=== PATIENT | female | born 1935 | race Caucasian/White ===

== ENCOUNTER 2019-07-12 08:20 | Outpatient (RCR) | payer MEDICARE, MEDICAID, SELFPAY | END 2019-08-09 00:01 | LOC: LAB 08:20 | PROVIDERS: Family Provider Family Medicine; Visit Provider Family Medicine | DX: Z09 Encounter for follow-up examination after completed treatment for conditions other than malignant neoplasm (principal); N39.0 Urinary tract infection, site not specified | CPT/HCPCS: 85025 ==

== ENCOUNTER 2019-08-29 09:14 | Outpatient (RCR) | payer MEDICARE, MEDICAID, SELFPAY ==
[2019-08-29 09:56] LABS: Basophils % 0.6 %; Eosinophils # 0.2 10^3/uL (0.0-0.8); Eosinophils % 3.2 %; Hematocrit 33.9 % (37.0-47.0); Hemoglobin 9.6 g/dL (11.5-15.3); Lymphocytes % 41.4 %; Mean Corpuscular HGB Conc 28.3 g/dL (30.0-36.0); Mean Corpuscular Hemoglobin 20.7 pg (28.0-34.0); Mean Corpuscular Volume 73.1 fL (81-99); Mean Platelet Volume 9.9 fL (7.4-10.4); Monocytes # 0.8 10^3/uL (0.2-0.9); Monocytes % 11.1 %; Neutrophils # 3.1 10^3/uL (1.8-7.7); Neutrophils % 43.4 %; Nucleated Red Blood Cells % 0 %; Platelet Count 354 10^3/cmm (130-400); Red Blood Count 4.64 10^6/uL (4.1-5.3); Red Cell Distribution Width 17.2 % (12.1-15.1); White Blood Count 7.1 10^3/uL (4.0-10.0)
[2019-08-29 10:22] LABS: Anion Gap 12.2 (5-19); Blood Urea Nitrogen 14 mg/dL (8-23); Calcium 9.4 mg/Dl (8.8-10.2); Carbon Dioxide 28 mmol/L (22-29); Chloride 102 mmol/L (98-107); Glucose 91 mg/dL (74-106); Potassium 4.2 mmol/L (3.5-5.1); Sodium 138 mmol/L (136-145)
== END 2019-09-09 23:59 | disposition home or self-care (01) ==
LOC: LAB 09:14
PROVIDERS: Family Provider Family Medicine; PCP Family Medicine; Visit Provider Family Medicine
DX: D64.9 Anemia, unspecified (principal); E87.6 Hypokalemia; I10 Essential (primary) hypertension
CPT/HCPCS: 80048; 85025

== ENCOUNTER 2020-12-08 13:03 | Outpatient (CLI) | payer MEDICARE, MEDICAID, SELFPAY ==
[2020-12-08 13:14] LABS: Hematocrit 44.9 % (37.0-47.0); Hemoglobin 13.9 g/dL (11.5-15.3)
== END 2020-12-08 13:04 | disposition home or self-care (01) ==
LOC: LAB 13:05
PROVIDERS: PCP Family Medicine; Visit Provider Family Medicine
DX: K92.1 Melena (principal)
CPT/HCPCS: 85014; 85018

== ENCOUNTER → 2021-10-16 13:48 | Outpatient (BNVA) | payer MEDICARE, MEDICAID, SELFPAY | PROVIDERS: PCP Family Medicine; Visit Provider Internal Medicine Cardiovascular Disease | DX: I11.0 Hypertensive heart disease with heart failure (principal); I50.32 Chronic diastolic (congestive) heart failure; I48.0 Paroxysmal atrial fibrillation; I25.10 Atherosclerotic heart disease of native coronary artery without angina pectoris | CPT/HCPCS: 99214 ==

== ENCOUNTER 2022-04-04 12:32 | Outpatient (CLI) | payer MEDICARE, MEDICAID, SELFPAY ==
--- NOTE | 2022-04-04 13:00 | USCV_ITS ---
Lilia Hernandez Age: 86 Gender: F : 1935 Exam Date: 04/04/2022 13:00 Ordering Phys: Marge Archer MD ([email or web address]) Technologist: KUN Exam Location: [facility] [place] Indication: CHEST PAIN BP: 136 / 84 HR: 83 Rhythm: Other Technical Quality: Suboptimal MEASUREMENTS (Male / Female) Normal Values 2D ECHO LV Diastolic Diameter PLAX 3.7 cm 4.2 - 5.9 / 3.9 - 5.3 cm LV Systolic Diameter PLAX 2.1 cm IVS Diastolic Thickness 1.0 cm 0.6 - 1.0 / 0.6 - 0.9 cm IVS Systolic Thickness 1.4 cm LVPW Diastolic Thickness 1.4 cm 0.6 - 1.0 / 0.6 - 0.9 cm LVPW Systolic Thickness 1.6 cm LVOT Diameter 2.0 cm LV Ejection Fraction 2D Teich 74.0 % LV Ejection Fraction MOD 2C 39.2 % LV Ejection Fraction 2C AL 38.3 % LA Diameter 4.0 cm LA Width 2.5 cm LA Height 4.1 cm RA Width 3.7 cm RA Height 4.9 cm Aorta at Sinotubular Diameter 2.1 cm M-MODE Aortic Annulus Diameter 2.8 cm LA Ao Ratio MM 1.3 MV E Point Septal Separation 0.6 cm DOPPLER AV Peak Velocity 123.0 cm/s LVOT Peak Velocity 55.5 cm/s AV Area Cont Eq vti 1.8 cm squared AV Area Cont Eq pk 1.4 cm squared MV Area PHT 3.7 cm squared MV E' Velocity 57.0 cm/s Mitral E to MV E' Ratio 10.9 Mitral E to LV E' Lateral Ratio 10.3 Mitral E to LV E' Septal Ratio 11.6 TR Peak Velocity 302.0 cm/s TR Peak Gradient 36.5 mmHg TR Mean Velocity 219.3 cm/s TR Mean Gradient 21.5 mmHg TR Velocity Time Integral 88.4 cm Right Atrial Pressure 8.0 mmHg Pulmonary Artery Systolic Pressu 44.5 mmHg RV Acceleration Time 0.1 s RV Ejection Time 0.2 s RV AcT/ET 0.3 FINDINGS Left Ventricle Normal left ventricular size, systolic function and mildly increased wall thickness. Mild concentric left ventricular hypertrophy. Left ventricular ejection fraction is grossly estimated at 55 %. This study is inadequate for estimation of regional wall motion abnormality. Rhythm precludes evaluation of diastolic function. Right Ventricle Normal right ventricular size and systolic function. Right ventricular systolic pressure 53 mmHg. Right Atrium Moderately increased right atrial size. Left Atrium Mildly increased left atrial size. Mitral Valve Mildly thickened mitral valve. Trace mitral valve regurgitation. Aortic Valve Moderately thickened and calcified trileaflet aortic valve. No aortic valve stenosis. No aortic valve regurgitation. Tricuspid Valve Structurally normal tricuspid valve. No tricuspid valve stenosis. Moderate tricuspid valve regurgitation. Pulmonic Valve Structurally normal pulmonic valve. No pulmonary valve stenosis. Trace pulmonary valve regurgitation. Pericardium No pericardial effusion. Aorta Normal size aortic root and proximal ascending aorta. IVC Inferior vena cava not visualized. CONCLUSIONS 1. This is a technically difficult study. 2. Normal left ventricular size and systolic function. Mild concentric left ventricular hypertrophy. Left ventricular ejection fraction is grossly estimated at 55 %. This study is inadequate for estimation of regional wall motion abnormality. 3. Normal right ventricular size and systolic function. 4. Moderate pulmonary hypertension with pulmonary artery pressure estimated at 53 mmHg. 5. Moderate tricuspid valve regurgitation. 6. No prior similar studies to compare. Marge Archer MD (Electronically Signed) Final Date: 10 April 2022 17:22 S
== END 2022-04-04 12:33 | disposition home or self-care (01) ==
LOC: RAD 12:33
PROVIDERS: PCP Family Medicine; Visit Provider Internal Medicine Cardiovascular Disease
DX: R06.02 Shortness of breath (principal); R07.9 Chest pain, unspecified; I27.20 Pulmonary hypertension, unspecified; I07.1 Rheumatic tricuspid insufficiency
CPT/HCPCS: 93306

== ENCOUNTER → 2022-04-23 13:45 | Outpatient (BNVA) | payer MEDICARE, MEDICAID, SELFPAY | PROVIDERS: PCP Internal Medicine; Visit Provider Internal Medicine Cardiovascular Disease | DX: I25.10 Atherosclerotic heart disease of native coronary artery without angina pectoris (principal); I48.0 Paroxysmal atrial fibrillation; Z79.01 Long term (current) use of anticoagulants; Z95.1 Presence of aortocoronary bypass graft; I11.0 Hypertensive heart disease with heart failure; I50.32 Chronic diastolic (congestive) heart failure; Z87.891 Personal history of nicotine dependence | CPT/HCPCS: 99214 ==

== ENCOUNTER → 2023-03-11 13:40 | Outpatient (BNVA) | payer MEDICARE, MEDICAID, SELFPAY | PROVIDERS: PCP Internal Medicine; Visit Provider Internal Medicine Cardiovascular Disease | DX: I25.10 Atherosclerotic heart disease of native coronary artery without angina pectoris (principal); Z95.1 Presence of aortocoronary bypass graft; I48.0 Paroxysmal atrial fibrillation; I11.0 Hypertensive heart disease with heart failure; I50.32 Chronic diastolic (congestive) heart failure; Z87.891 Personal history of nicotine dependence; Z79.01 Long term (current) use of anticoagulants | CPT/HCPCS: 99214 ==

== ENCOUNTER → 2023-03-31 08:57 | Outpatient (BNVA) | payer MEDICARE, MEDICAID, SELFPAY | PROVIDERS: PCP Internal Medicine; Visit Provider Podiatrist Foot & Ankle Surgery | DX: Z79.4 Long term (current) use of insulin; L60.3 Nail dystrophy; I73.9 Peripheral vascular disease, unspecified; M21.41 Flat foot [pes planus] (acquired), right foot; M21.42 Flat foot [pes planus] (acquired), left foot | CPT/HCPCS: 11721; 99204 ==

== ENCOUNTER → 2023-06-30 09:20 | Outpatient (BNVA) | payer MEDICARE, MEDICAID, SELFPAY | PROVIDERS: PCP Internal Medicine; Visit Provider Podiatrist Foot & Ankle Surgery | DX: E11.9 Type 2 diabetes mellitus without complications (principal); L60.3 Nail dystrophy; I73.9 Peripheral vascular disease, unspecified; M21.41 Flat foot [pes planus] (acquired), right foot; M21.42 Flat foot [pes planus] (acquired), left foot; Z79.4 Long term (current) use of insulin; Z79.84 Long term (current) use of oral hypoglycemic drugs | CPT/HCPCS: 11721 ==

== ENCOUNTER 2023-07-10 03:09 | Emergency (ER) | payer MEDICARE, MEDICAID, SELFPAY ==
[2023-07-10 03:10] VITALS: BP 195/111; PULSE 77; RESP 18; TEMP 36.9; O2SAT 92; BMI 32.9
--- NOTE | 2023-07-10 03:10 | XRR_ITS ---
PROCEDURE INFORMATION: Exam: XR Chest Exam date and time: 07/10/2023 3:29 AM Age: 88 years old Clinical indication: Chest wall pain; Prior surgery; Surgery date: 6+ months; Surgery type: Open heart 10 years ago, ex smoker; Additional info: Cp TECHNIQUE: Imaging protocol: Radiologic exam of the chest. Views: 1 view. COMPARISON: CR XR chest 1V [id number] 03/26/2019 6:39 PM FINDINGS: Lungs: Unremarkable. No consolidation. Pleural spaces: Unremarkable. No pleural effusion. No pneumothorax. Heart/Mediastinum: Cardiomegaly. Bones/joints: Postop sternotomy wires. XR/XR chest 1V portable [id number] IMPRESSION: Cardiomegaly with no acute process
--- NOTE | 2023-07-10 03:11 | ECG_ITS ---
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 Measurements Intervals [place] Rate: 91 P: 0 VT: 0 QRS: -47 QRSD: 96 T: 113 QT: 375 QTc: 463 Interpretive Statements ATRIAL FIBRILLATION LEFT AXIS DEVIATION [QRS AXIS < -30] INCOMPLETE RIGHT BUNDLE BRANCH BLOCK [90+ ms QRS DURATION, TERMINAL R IN V1/V2, 40+ ms S IN I/aVL/V4/V5/V6] SEPTAL MYOCARDIAL INFARCTION , OF INDETERMINATE AGE [40+ ms Q WAVE IN V1/V2] Compared to ECG 06/21/2019 08:21:20 Left-axis deviation now present Incomplete right bundle-branch block now present Myocardial infarct finding now present Sinus rhythm no longer present T-wave abnormality no longer present Possible ischemia no longer present Electronically Signed On 07-10-2023 6:50:44 [employer] COUN[employer] by Marge Archer M.D. [id number]
--- NOTE | 2023-07-10 03:15 | ED_ITS ---
HPI - Chest Pain 2 General: Chief Complaint: Chest Pain Stated Complaint: Chest Pain Time Seen by Provider: 07/10/23 03:10 Source: patient and EMS Mode of arrival: EMS Limitations: no limitations History of Present Illness: 88-year-old female is here from jail she said she is having some chest pain tonight side of her chest sharp pain she states it lasted roughly 1 hour and is now resolved she denies any vomiting denies any cough or fever denies any shortness of breath at this time. Associated symptoms: Deny abdominal pain, dyspnea, fever(s), nausea or vomiting Review of Systems 2 Const: Denies: fever(s), chills, body aches or change in appetite ENMT: Denies: throat pain or dental pain Card: Reports: chest pain Resp: Denies: dyspnea GI: Denies: abdominal pain, nausea, vomiting or diarrhea Musc: Denies: neck pain or back pain Skin/Breast: Denies: rash Neuro: Denies: headache(s) PFSH ED 2 PFSH: Medical History Atrial fibrillation Diastolic heart failure HTN (hypertension) Surgical History S/P CABG (coronary artery bypass graft) Family History Other CAD (coronary artery disease) Social History Smoking and tobacco/nicotine status: former use of tobacco/nicotine Physical Exam 2 Const: COMMON NORMALS: no acute distress, patient oriented x3 and healthy appearing HENMT: COMMON NORMALS: normocephalic and atraumatic HEAD & SCALP: n ormocephalic and atraumatic Neck/C-Spine: COMMON NORMALS: full ROM and supple Chest: COMMONS NORMALS: normal inspection of the chest; negative for normal palpation of entire chest wall (point tender in center of chest) Resp: COMMON NORMALS: normal respiratory effort, No retractions, No use of accessory muscles and clear to auscultation bilaterally AUSCULTATION: clear to auscultation bilaterally Cardio: COMMON NORMALS: regular rate and No murmurs present (Cardio) RATE: regular rate RHYTHM: abnormal rhythm irregularly irregular GI: COMMON NORMALS: Normal to inspection, nondistended, normoactive bowel sounds present, Soft to palpation, non-tender and no masses PALPATION: Yes Soft to palpation Extremity: COMMON NORMALS: normal to inspection and full ROM Neuro: COMMON NORMALS: patient oriented x3, moves all extremities and no focal motor deficits Psych: COMMON NORMALS: mental status grossly normal, Normal thought process present and cooperative THOUGHT PROCESS: Normal thought process present Skin: COMMON NORMALS: no rashes or lesions noted and no wounds GENERAL SKIN EXAM: no rashes or lesions noted Course 2 Vital Signs: Vital signs: Vital Signs Temperature 98.5 F 07/10/23 03:10 Pulse Rate 88 07/10/23 05:05 Respiratory Rate 18 07/10/23 05:05 Blood Pressure 122/89 07/10/23 05:05 Pulse Oximetry 94 07/10/23 05:05 Oxygen Delivery Me thod Nasal Cannula 07/10/23 05:05 Oxygen Flow Rate 2 07/10/23 05:05 MDM - Chest Pain Medical Decision Making Patient presents here with chest pain its atypical in nature initial and repeat troponin are negative EKGs x-rays normal pain is resolved here she is stable for discharge she is follow-up with PCP and return if worsening. Medical Records I reviewed the patient's medical records. Lab Data I reviewed the patient's lab results. 07/10/23 03:20 07/10/23 03:20 Radiology Impressions Chest X-Ray 07/10/23 03:10 IMPRESSION: Cardiomegaly with no acute process Laboratory Results WBC 11.19 10^3/uL (3.29-11.43) 07/10/23 03:20 RBC 4.79 10^6/uL (3.85-5.65) 07/10/23 03:20 Hgb 13.30 g/dL (11.27-16.99) 07/10/23 03:20 Hct 43.1 % (36-47) 07/10/23 03:20 MCV 90.0 fl (85-98) 07/10/23 03:20 MCH 27.8 pg (27-33) 07/10/23 03:20 MCHC 30.9 g/dL (30-55) 07/10/23 03:20 RDW 13.4 % (12.1-15.1) 07/10/23 03:20 Plt Count 233 10^3/cmm (157-399) 07/10/23 03:20 MPV 9.4 fL (7.4-10.4) 07/10/23 03:20 Neut % (Auto) 46.2 % 07/10/23 03:20 Lymph % (Auto) 43.1 % 07/10/23 03:20 [place] % (Auto) 8.4 % 07/10/23 03:20 Eos % (Auto) 1.6 % 07/10/23 03:20 Baso % (Auto) 0.4 % 07/10/23 03:20 Neut # (Auto) 5.17 10^3/uL (1.8-7.7) 07/10/23 03:20 Lymph # (Auto) 4.8 10^3/uL (0.8-4.8) 07/10/23 03:20 [place] # (Auto) 0.9 10^3/uL (0.2-0.9) 07/10/23 03:20 Eos # (Auto) 0.2 10^3/uL (0.0-0.8) 07/10/23 03:20 Baso # (Auto) 0.1 10^3/uL (0.0-0.1) 07/10/23 03:20 Nucleated RBC % (auto) 0 % 07/10/23 03:20 Nucleated RBCs # 0.0 /100WBC 07/10/23 03:20 PT 16.50 SECONDS (12.1-14.9) H 07/10/23 03:20 INR 1.28 (0.8-1.2) H 07/10/23 03:20 Sodium 139 mmol/L (136-145) 07/10/23 03:20 Potassium 4.1 mmol/L (3.5-5.1) 07/10/23 03:20 Chloride 103 mmol/L (98-107) 07/10/23 03:20 Carbon Dioxide 29 mmol/L (22-29) 07/10/23 03:20 Anion Gap 11.1 (5-19) 07/10/23 03:20 BUN 15 mg/dL (8-23) 07/10/23 03:20 Creatinine 0.8 mg/dL (0.5-0.9) 07/10/23 03:20 GFR Calculation Not Reportable 07/10/23 03:20 Glucose 118 mg/dL (65-115) H 07/10/23 03:20 Calculated Osmolality 290 mOsm/kg (285-295) 07/10/23 03:20 Calcium 9.0 mg/dL (8.5-10.5) 07/10/23 03:20 Total Bilirubin 0.3 mg/dL (0.15-1.2) 07/10/23 03:20 AST 14 U/L (0-32) 07/10/23 03:20 ALT 7 U/L (0-33) 07/10/23 03:20 Alkaline Phosphatase 83 U/L (35-105) 07/10/23 03:20 Troponin T Baseline 15 ng/L (0-10) H 07/10/23 03:20 Troponin T 120 Minute 15.49 ng/L (0-10) H 07/10/23 05:01 Delta Troponin T 0.49 ABS# (0-10) 07/10/23 05:01 Total Protein 6.5 g/dL (6.6-8.7) L 07/10/23 03:20 Albumin 3.4 g/dL (3.5-5.2) L 07/10/23 03:20 Globulin 3.1 g/dL (1.3-4.6) 07/10/23 03:20 All radiology interpretation(s) finalized by discharge Discharge Plan Discharge Patient Disposition: Home Clinical Impression: Chest pain Condition: Stable Prescriptions: No Action acetaminophen 325 mg tablet 325 mg PO QID PRN bisacodyl 10 mg suppository 10 mg [place] DAILY PRN Senna Plus 8.6-50 mg capsule 1 tab-cap PO BID PRN magnesium hydroxide [Milk of Magnesia] 400 mg/5 mL suspension 400 mg PO DAILY PRN polyethylene glycol 3350 [Miralax] 17 gram/dose powder 17 g PO DAILY PRN atorvastatin 20 mg tablet 20 mg PO DAILY furosemide 20 mg tablet 20 mg PO DAILY ibuprofen 400 mg tablet 400 mg PO Q8H PRN loperamide 2 mg tablet 2 mg PO Q6H PRN metoprolol succinate 25 mg tablet extended release 24 hr 25 mg PO DAILY Qty: 90 2RF donepezil 10 mg tablet 10 mg PO DAILY memantine 10 mg tablet 10 mg PO BID nitroglycerin [Nitrostat] 0.4 mg tablet, sublingual 0.4 mg SUBLINGUAL Q5M PRN omeprazole 20 mg capsule,delayed release(DR/EC) 20 mg PO DAILY ondansetron HCl 4 mg tablet 4 mg PO Q8H PRN fluticasone propionate 50 mcg/actuation spray,suspension 1 spray INTRANASAL DAILY Eliquis 5 mg tablet 2.5 mg PO BID metformin 500 mg tablet extended release 24 hr 500 mg PO DAILY Tresiba FlexTouch U-100 100 unit/mL (3 mL) insulin pen 20 unit SUBCUT DAILY insulin aspart U-100 [Novolog FlexPen U-100 Insulin] 100 unit/mL (3 mL) insulin pen 6 unit SUBCUT TID nystatin 100,000 unit/gram powder 1 applic topical DAILY PRN Discharge Orders: Discharge ED (Routine); Ordered 07/10/23 Ordered By: Aisha Buenrostro Referrals: Arnold John DO [Primary Care Provider] - 1-3 days Discharge Diet: Advance as tolerated Discharge Activity: Resume usual activity Patient Instructions: Chest Pain (ED) Coding Level of Care Code ED Professor Of Sociology for Rudy Castro
[2023-07-10] MEDS: hyDRALAzine 20 mg/mL INJ 1 mL 10 MG IVP (03:30)
[2023-07-10 03:33] LABS: Basophils # 0.1 10^3/uL (0.0-0.1); Basophils % 0.4 %; Eosinophils # 0.2 10^3/uL (0.0-0.8); Eosinophils % 1.6 %; Hematocrit 43.1 % (36-47); Lymphocytes # 4.8 10^3/uL (0.8-4.8); Lymphocytes % 43.1 %; Mean Corpuscular HGB Conc 30.9 g/dL (30-55); Mean Corpuscular Hemoglobin 27.8 pg (27-33); Mean Platelet Volume 9.4 fL (7.4-10.4); Monocytes # 0.9 10^3/uL (0.2-0.9); Monocytes % 8.4 %; Neutrophils # 5.17 10^3/uL (1.8-7.7); Neutrophils % 46.2 %; Nucleated Red Blood Cells % 0 %; Platelet Count 233 10^3/cmm (157-399); Red Blood Count 4.79 10^6/uL (3.85-5.65); Red Cell Distribution Width 13.4 % (12.1-15.1); White Blood Count 11.19 10^3/uL (3.29-11.43)
[2023-07-10 03:45] LABS: INR 1.28 (0.8-1.2)
[2023-07-10 03:49] VITALS: BP 132/80; PULSE 80; RESP 17; O2SAT 94
[2023-07-10 03:54] LABS: Alanine Aminotransferase 7 U/L (0-33); Albumin Level 3.4 g/dL (3.5-5.2); Alkaline Phosphatase 83 U/L (35-105); Anion Gap 11.1 (5-19); Aspartate Amino Transferase 14 U/L (0-32); Blood Urea Nitrogen 15 mg/dL (8-23); Carbon Dioxide 29 mmol/L (22-29); Chloride 103 mmol/L (98-107); Globulin 3.1 g/dL (1.3-4.6); Glucose 118 mg/dL (65-115); Osmolality Calculated 290 mOsm/kg (285-295); Potassium 4.1 mmol/L (3.5-5.1); Sodium 139 mmol/L (136-145); Total Bilirubin 0.3 mg/dL (0.15-1.2); Total Protein 6.5 g/dL (6.6-8.7)
[2023-07-10 03:55] LABS: Troponin(5th) Baseline 15 ng/L (0-10)
[2023-07-10 04:27] VITALS: BP 115/66; PULSE 89; RESP 16; O2SAT 94
[2023-07-10 05:05] VITALS: BP 122/89; PULSE 88; RESP 18; O2SAT 94
[2023-07-10 05:24] LABS: Troponin 5 2HR 15.49 ng/L (0-10); Troponin 5 2HR Delta 0.49 ABS# (0-10)
[2023-07-10 09:41] VITALS: PULSE 90; RESP 17; O2SAT 98
== END 2023-07-10 10:45 | disposition home or self-care (01) ==
PROVIDERS: Emergency Provider Emergency Medicine; PCP Internal Medicine
DX: R07.9 Chest pain, unspecified (principal); Z79.01 Long term (current) use of anticoagulants; Z79.84 Long term (current) use of oral hypoglycemic drugs; Z79.4 Long term (current) use of insulin; I11.0 Hypertensive heart disease with heart failure; I50.30 Unspecified diastolic (congestive) heart failure; Z95.1 Presence of aortocoronary bypass graft; Z87.891 Personal history of nicotine dependence
CPT/HCPCS: 71045; 80053; 84484; 85025; 85610; 93005; 96374; 99285; J0360

== ENCOUNTER → 2023-08-21 11:15 | Outpatient (BNVA) | payer MEDICARE, MEDICAID, SELFPAY | PROVIDERS: PCP Internal Medicine; Visit Provider Nurse Practitioner Family | DX: I48.0 Paroxysmal atrial fibrillation (principal); I11.0 Hypertensive heart disease with heart failure; I50.32 Chronic diastolic (congestive) heart failure; Z95.1 Presence of aortocoronary bypass graft; Z87.891 Personal history of nicotine dependence; Z79.01 Long term (current) use of anticoagulants | CPT/HCPCS: 99214 ==

== ENCOUNTER 2024-01-05 13:08 | Emergency (ER) | payer MEDICARE, MEDICAID, SELFPAY ==
[2024-01-05 13:15] VITALS: BP 176/91; PULSE 95; RESP 16; TEMP 36.8; O2SAT 91
--- NOTE | 2024-01-05 13:34 | ECG_ITS ---
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 Measurements Intervals [place] Rate: 88 P: 0 OK: 0 QRS: -31 QRSD: 91 T: 127 QT: 389 QTc: 472 Interpretive Statements ATRIAL FIBRILLATION LEFT AXIS DEVIATION [QRS AXIS < -30] MODERATE VOLTAGE CRITERIA FOR LVH, CONSIDER NORMAL VARIANT [MEETS CRITERIA IN ONE OF: R(aVL), S(V1), R(V5), R(V5/V6)+S(V1)] POSSIBLE SEPTAL MYOCARDIAL INFARCTION , PROBABLY OLD [30 ms Q WAVE IN V1/V2] Compared to ECG 07/10/2023 03:11:58 Incomplete right bundle-branch block no longer present Myocardial infarct finding still present Electronically Signed On 01-05-2024 16:48:22 CDT by Morris Eason M.D. [id number]
--- NOTE | 2024-01-05 13:34 | CT_ITS ---
WS: [id number] CT HEAD TECHNIQUE: Noncontrast CT of the head obtained from the skullbase to the vertex. CLINICAL INFORMATION: AMS COMPARISON: None. DLP: 1025.[address] scans at [facility] use at least one of these dose optimization techniques: automated e xposure control; mA and/or kV adjustment per patient size (includes targeted exams where dose is matc hed to clinical indication); or iterative reconstruction. FINDINGS: No evidence of intracranial hemorrhage or mass effect. Ventricular system and basal cisterns are patrick nt. Moderate small vessel changes with advanced parenchymal volume loss. No extra-axial fluid collect ions. No evidence of mass or mass effect. RIGHT sphenoid sinusitis. Mastoid air cells are well-aerated. CT/CT head wo con* [id number] IMPRESSION: 1. No evidence of intracranial hemorrhage or mass effect. 2. Moderate small vessel changes. Advanced parenchymal volume loss. 3. Intracranial vascular calcification. 4. RIGHT sphenoid sinusitis. 5. No acute intracranial findings.
--- NOTE | 2024-01-05 13:38 | W.ED.WEAKNES ---
HPI - Weakness General: Chief complaint: Weakness Stated complaint: Confusion, Weakness Time Seen by Provider: 01/05/24 13:26 Source: patient Mode of arrival: ambulatory History of Present Illness: 88-year-old female presents emergency room via EMS with complaints of generalized weakness. No reported fever sweats or chills no recent fall or trauma. No shortness of breath she denies any abdominal pain. She is otherwise awake and alert answers questions appropriately. MD Complaint: generalized weakness Location: generalized Severity: mild Relieving factors: none Exacerbating factors: none Associated symptoms: Denies chest pain, chills, confusion, melena, decreased appetite, diaphoresis, dysuria, easy bruising, fever(s), headache(s), myalgias, nausea, rash, short of breath, syncope or vomiting Review of Systems Const: Denies: fever(s), chills or diaphoresis Card: Denies: chest pain or syncope Resp: Denies: dyspnea GI: Denies: abdominal pain, nausea, vomiting or melena : Denies: dysuria, urinary frequency or urinary urgency Musc: Denies: neck pain or back pain Skin/Breast: Denies: rash Neuro: Denies: headache(s) or confusion Amor/Lymph: Denies: easy bruising PFSH ED PFSH: Medical History Diastolic heart failure HTN (hypertension) Atrial fibrillation Surgical History S/P CABG (coronary artery bypass graft) Family History Other CAD (coronary artery disease) Social History Smoking and tobacco/nicotine status: former use of tobacco/nicotine Physical Exam Const: COMMON NORMALS: no acute distress GENERAL APPEARANCE: cooperative and comfortable ORIENTATION/CONSCIOUSNESS: Yes awake, Yes oriented to person, Yes oriented to place and Yes oriented to time HENMT: COMMON NORMALS: normocephalic, atraumatic and hearing grossly normal bilaterally HEAD & SCALP: normocephalic and atraumatic Resp: COMMON NORMALS: normal respiratory effort, No retractions, No use of accessory muscles and clear to auscultation bilaterally AUSCULTATION: clear to auscultation bilaterally Cardio: COMMON NORMALS: regular rate, regular rhythm and No murmurs present (Cardio) RATE: regular rate RHYTHM: regular rhythm GI: COMMON NORMALS: Soft to palpation and No hepatosplenomegaly present AUSCULTATION: Yes normoactive bowel sounds PALPATION: Yes Soft to palpation, No Tenderness to palpation present (GI), No Guarding due to palpation present (GI) and Yes No hepatosplenomegaly present Extremity: COMMON NORMALS: normal to inspection, capillary refill normal, no clubbing, cyanosis or edema, no calf tenderness and no pedal edema Neuro: SENSORIUM/ORIENTATION: Yes oriented to person, Yes oriented to place and Yes oriented to time Skin: COMMON NORMALS: no rashes or lesions noted GENERAL SKIN EXAM: no rashes or lesions noted Course Vital Signs: Vital signs: Vital Signs Temperature 98.2 F 01/05/24 13:15 Pulse Rate 92 01/05/24 21:44 Respiratory Rate 15 01/05/24 21:44 Blood Pressure 170/105 01/05/24 21:44 Pulse Oximetry 90 01/05/24 21:44 Oxygen Delivery Me thod Room Air, Nasal C annula 01/05/24 21:43 Oxygen Flow Rate 2 01/05/24 18:30 MDM - Weakness Medical Decision Making Labs imaging and reviewed. UA shows signs of infection. White count is normal with a negative differential. BMP shows normal electrolytes and renal function. Liver function is still normal as well. CT head is negative. Repeat exam is unremarkable. Will discharge patient home on cefdinir for cystitis. Continue to monitor blood pressure closely. Follow-up with primary care through the correction. Return if has further problems. Medical Records I reviewed the patient's medical records. Lab Data I reviewed the patient's lab results. 01/05/24 13:18 01/05/24 13:[address] 01/05/24 13:34 IMPRESSION: 1. No evidence of intracranial hemorrhage or mass effect. 2. Moderate small vessel changes. Advanced parenchymal volume loss. 3. Intracranial vascular calcification. 4. RIGHT sphenoid sinusitis. 5. No acute intracranial findings. Laboratory Results WBC 9.11 10^3/uL (3.29-11.43) 01/05/24 13:18 RBC 4.88 10^6/uL (3.85-5.65) 01/05/24 13:18 Hgb 13.90 g/dL (11.27-16.99) 01/05/24 13:18 Hct 44.5 % (36-47) 01/05/24 13:18 MCV 91.2 fl (85-98) 01/05/24 13:18 MCH 28.5 pg (27-33) 01/05/24 13:18 MCHC 31.2 g/dL (30-55) 01/05/24 13:18 RDW 14.2 % (12.1-15.1) 01/05/24 13:18 Plt Count 234 10^3/cmm (157-399) 01/05/24 13:18 MPV 10.0 fL (7.4-10.4) 01/05/24 13:18 Neut % (Auto) 47.1 % 01/05/24 13:18 Lymph % (Auto) 41.2 % 01/05/24 13:18 [place] % (Auto) 9.4 % 01/05/24 13:18 Eos % (Auto) 1.8 % 01/05/24 13:18 Baso % (Auto) 0.3 % 01/05/24 13:18 Neut # (Auto) 4.29 10^3/uL (1.8-7.7) 01/05/24 13:18 Lymph # (Auto) 3.8 10^3/uL (0.8-4.8) 01/05/24 13:18 [place] # (Auto) 0.9 10^3/uL (0.2-0.9) 01/05/24 13:18 Eos # (Auto) 0.2 10^3/uL (0.0-0.8) 01/05/24 13:18 Baso # (Auto) 0.0 10^3/uL (0.0-0.1) 01/05/24 13:18 Nucleated RBC % (auto) 0 % 01/05/24 13:18 Nucleated RBCs # 0.0 /100WBC 01/05/24 13:18 Sodium 143 mmol/L (136-145) 01/05/24 13:18 Potassium 3.7 mmol/L (3.5-5.1) 01/05/24 13:18 Chloride 104 mmol/L (98-107) 01/05/24 13:18 Carbon Dioxide 29 mmol/L (22-29) 01/05/24 13:18 Anion Gap 13.7 (5-19) 01/05/24 13:18 BUN 11 mg/dL (8-23) 01/05/24 13:18 Creatinine 0.6 mg/dL (0.5-0.9) 01/05/24 13:18 GFR Calculation Not Reportable 01/05/24 13:18 Glucose 119 mg/dL (65-115) H 01/05/24 13:18 Calculated Osmolality 297 mOsm/kg (285-295) H 01/05/24 13:18 Lactic Acid 1.0 mmol/L (0.5-2.2) 01/05/24 13:56 Calcium 8.7 mg/dL (8.5-10.5) 01/05/24 13:18 Total Bilirubin 0.5 mg/dL (0.15-1.2) 01/05/24 13:18 AST 12 U/L (0-32) 01/05/24 13:18 ALT 8 U/L (0-33) 01/05/24 13:18 Alkaline Phosphatase 74 U/L (35-105) 01/05/24 13:18 Troponin T Baseline 15 ng/L (0-10) H 01/05/24 13:18 Troponin T 120 Minute 14.83 ng/L (0-10) H 01/05/24 15:20 Delta Troponin T -0.17 ABS# (0-10) L 01/05/24 15:20 Total Protein 6.6 g/dL (6.6-8.7) 01/05/24 13:18 Albumin 3.3 g/dL (3.5-5.2) L 01/05/24 13:18 Globulin 3.3 g/dL (1.3-4.6) 01/05/24 13:18 Lipase 18 U/L (13-60) 01/05/24 13:18 Urine Color Yellow (Yellow) 01/05/24 13:47 Urine Appearance Cloudy (CLEAR) A 01/05/24 13:47 Urine pH 5 (5-7) 01/05/24 13:47 Ur Specific [place] 1.020 (1.005-1.030) 01/05/24 13:47 Urine Protein Neg (Negative) 01/05/24 13:47 Urine Glucose (UA) Norm (Normal) 01/05/24 13:47 Urine Ketones Negative (Negative) 01/05/24 13:47 Urine Blood 2+ (Negative) H 01/05/24 13:47 Urine Nitrate Positive (Negative) H 01/05/24 13:47 Urine Bilirubin Neg (Negative) 01/05/24 13:47 Urine Urobilinogen 4 mg/dL (Negative) H 01/05/24 13:47 Ur Leukocyte Esterase 2+ (Negative) H 01/05/24 13:47 Urine RBC 0-4 /hpf (0-2) H 01/05/24 13:47 Urine WBC 40-55 /hpf (0-5) H 01/05/24 13:47 Ur Squamous Epith Cells 0-4 /hpf (0-5) H 01/05/24 13:47 Amorphous Sediment Not Reportable 01/05/24 13:47 Urine Bacteria 3+ /hpf (NONE) H 01/05/24 13:47 Serum Ketones Negative (Negative) 01/05/24 13:18 All radiology interpretation(s) finalized by discharge Discharge Plan Discharge Patient Disposition: Home Clinical Impression: Cystitis Condition: Stable Prescriptions: New cefdinir 300 mg capsule 300 mg PO BID 10 Days Qty: 20 0RF No Action acetaminophen 325 mg tablet 325 mg PO QID PRN bisacodyl 10 mg suppository 10 mg [place] DAILY PRN Senna Plus 8.6-50 mg capsule 1 tab-cap PO BID PRN magnesium hydroxide [Milk of Magnesia] 400 mg/5 mL suspension 400 mg PO DAILY PRN polyethylene glycol 3350 [Miralax] 17 gram/dose powder 17 g PO DAILY PRN atorvastatin 20 mg tablet 20 mg PO DAILY furosemide 20 mg tablet 20 mg PO DAILY ibuprofen 400 mg tablet 400 mg PO Q8H PRN loperamide 2 mg tablet 2 mg PO Q6H PRN metoprolol succinate 25 mg tablet extended release 24 hr 25 mg PO DAILY Qty: 90 2RF donepezil 10 mg tablet 10 mg PO DAILY memantine 10 mg tablet 10 mg PO BID nitroglycerin [Nitrostat] 0.4 mg tablet, sublingual 0.4 mg SUBLINGUAL Q5M PRN omeprazole 20 mg capsule,delayed release(DR/EC) 20 mg PO DAILY ondansetron HCl 4 mg tablet 4 mg PO Q8H PRN fluticasone propionate 50 mcg/actuation spray,suspension 1 spray INTRANASAL DAILY Eliquis 5 mg tablet 2.5 mg PO BID metformin 500 mg tablet extended release 24 hr 500 mg PO DAILY Tresiba FlexTouch U-100 100 unit/mL (3 mL) insulin pen 20 unit SUBCUT DAILY insulin aspart U-100 [Novolog FlexPen U-100 Insulin] 100 unit/mL (3 mL) insulin pen 6 unit SUBCUT TID nystatin 100,000 unit/gram powder 1 applic topical DAILY PRN Discharge Orders: Discharge ED (Routine); Ordered 01/05/24 Ordered By: Otto Gonzales Referrals: Arnold John DO [Primary Care Provider] - Discharge Diet: Usual diet Discharge Activity: Resume usual activity Patient Instructions: Opioid Safety, Pain Management Activity Restrictions/Additional Instructions: You were seen today with generalized weakness. Your laboratory test showed a mild bladder infection there is no sign of elevated white count. Will treat you as an outpatient with cefdinir 1 tablet twice a day for 7 days. Coding Level of Care Code ED Pattern Filer for Rudy Castro
[2024-01-05 13:40] LABS: Basophils % 0.3 %; Eosinophils # 0.2 10^3/uL (0.0-0.8); Eosinophils % 1.8 %; Hematocrit 44.5 % (36-47); Lymphocytes # 3.8 10^3/uL (0.8-4.8); Lymphocytes % 41.2 %; Mean Corpuscular HGB Conc 31.2 g/dL (30-55); Mean Corpuscular Hemoglobin 28.5 pg (27-33); Mean Corpuscular Volume 91.2 fl (85-98); Monocytes # 0.9 10^3/uL (0.2-0.9); Monocytes % 9.4 %; Neutrophils # 4.29 10^3/uL (1.8-7.7); Neutrophils % 47.1 %; Nucleated Red Blood Cells % 0 %; Platelet Count 234 10^3/cmm (157-399); Red Blood Count 4.88 10^6/uL (3.85-5.65); Red Cell Distribution Width 14.2 % (12.1-15.1); White Blood Count 9.11 10^3/uL (3.29-11.43)
[2024-01-05 13:52] LABS: Ketone (Acetest) Serum Negative (Negative)
[2024-01-05] MEDS: ondansetron 2 mg/ML SDV 2 mL 4 MG IVP (13:55)
[2024-01-05] MEDS: aspirin 81 mg Chew Tablet 324 MG PO (13:58)
[2024-01-05 13:59] LABS: Alanine Aminotransferase 8 U/L (0-33); Albumin Level 3.3 g/dL (3.5-5.2); Alkaline Phosphatase 74 U/L (35-105); Anion Gap 13.7 (5-19); Aspartate Amino Transferase 12 U/L (0-32); Blood Urea Nitrogen 11 mg/dL (8-23); Calcium 8.7 mg/dL (8.5-10.5); Carbon Dioxide 29 mmol/L (22-29); Chloride 104 mmol/L (98-107); Creatinine Clr Calc Pharmacy 51.4249; Globulin 3.3 g/dL (1.3-4.6); Glucose 119 mg/dL (65-115); Lipase 18 U/L (13-60); Osmolality Calculated 297 mOsm/kg (285-295); Potassium 3.7 mmol/L (3.5-5.1); Sodium 143 mmol/L (136-145); Total Bilirubin 0.5 mg/dL (0.15-1.2); Total Protein 6.6 g/dL (6.6-8.7); Troponin(5th) Baseline 15 ng/L (0-10)
[2024-01-05 14:20] LABS: Protein Urine Neg (Negative); Urine Appearance Cloudy (CLEAR); Urine Color Yellow (Yellow); pH Urine 5 (5-7)
[2024-01-05 14:21] LABS: Add Urine Culture? Yes; Add Urine Microscopic? YES; Bacteria Urine 3+ /hpf; Bilirubin Urine Neg (Negative); Blood Urine 2+ (Negative); Glucose Urine UA Norm (Normal); Ketones Urine Negative (Negative); Leukocyte Esterase Urine 2+ (Negative); Nitrate Urine Positive (Negative); RBC Urine 0-4 /hpf (0-2); Squamous Epithelial Cell Urine 0-4 /hpf (0-5); Urobilinogen Urine 4 mg/dL (Negative); WBC Urine 40-55 /hpf (0-5)
[2024-01-05 15:06] VITALS: BP 168/87; PULSE 88; O2SAT 91
[2024-01-05 15:54] LABS: Troponin 5 2HR 14.83 ng/L (0-10)
[2024-01-05 15:56] LABS: Troponin 5 2HR Delta -0.17 ABS# (0-10)
[2024-01-05 18:30] VITALS: BP 122/98; PULSE 83; O2SAT 91
[2024-01-05 21:43] VITALS: BP 170/105; PULSE 90; RESP 15; O2SAT 92
[2024-01-05 21:44] VITALS: BP 170/105; PULSE 92; RESP 15; O2SAT 90
== END 2024-01-05 21:46 | disposition home or self-care (01) ==
PROVIDERS: Emergency Provider Family Medicine; PCP Internal Medicine
DX: N30.90 Cystitis, unspecified without hematuria (principal); Z79.01 Long term (current) use of anticoagulants; Z79.4 Long term (current) use of insulin; I11.0 Hypertensive heart disease with heart failure; I50.30 Unspecified diastolic (congestive) heart failure; Z95.1 Presence of aortocoronary bypass graft; Z87.891 Personal history of nicotine dependence
CPT/HCPCS: 36415; 70450; 80053; 81001; 82009; 83605; 83690; 84484; 85025; 87077; 87086; 87186; 93005; 96374; 99285; J2405

== ENCOUNTER → 2024-02-25 12:06 | Outpatient (BNVA) | payer MEDICARE, MEDICAID, SELFPAY | PROVIDERS: PCP Internal Medicine; Visit Provider Internal Medicine | DX: I25.10 Atherosclerotic heart disease of native coronary artery without angina pectoris (principal); Z95.1 Presence of aortocoronary bypass graft; I48.0 Paroxysmal atrial fibrillation; I11.0 Hypertensive heart disease with heart failure; I50.32 Chronic diastolic (congestive) heart failure; Z87.891 Personal history of nicotine dependence; Z79.01 Long term (current) use of anticoagulants | CPT/HCPCS: 99214 ==

== ENCOUNTER → 2024-06-14 08:16 | Outpatient (BNVA) | payer MEDICARE, MEDICAID, SELFPAY | PROVIDERS: PCP Internal Medicine; Visit Provider Podiatrist Foot & Ankle Surgery | DX: I73.9 Peripheral vascular disease, unspecified; M21.41 Flat foot [pes planus] (acquired), right foot; M21.42 Flat foot [pes planus] (acquired), left foot; Z78.9 Other specified health status; E11.69 Type 2 diabetes mellitus with other specified complication; Z79.4 Long term (current) use of insulin; Z79.84 Long term (current) use of oral hypoglycemic drugs | CPT/HCPCS: 99213 ==

== ENCOUNTER → 2024-11-24 14:45 | Outpatient (BNVA) | payer MEDICARE, MEDICAID, SELFPAY | PROVIDERS: PCP Internal Medicine; Visit Provider Internal Medicine | DX: I25.810 Atherosclerosis of coronary artery bypass graft(s) without angina pectoris (principal); I48.20 Chronic atrial fibrillation, unspecified; Z79.01 Long term (current) use of anticoagulants; I11.0 Hypertensive heart disease with heart failure; I50.32 Chronic diastolic (congestive) heart failure; Z87.891 Personal history of nicotine dependence | CPT/HCPCS: 99214 ==

== ENCOUNTER → 2025-06-13 08:42 | Outpatient (BNVA) | payer MEDICARE, MEDICAID, SELFPAY | PROVIDERS: PCP Internal Medicine; Visit Provider Podiatrist Foot & Ankle Surgery | DX: E11.8 Type 2 diabetes mellitus with unspecified complications (principal); I73.9 Peripheral vascular disease, unspecified; M21.41 Flat foot [pes planus] (acquired), right foot; M21.42 Flat foot [pes planus] (acquired), left foot; Z78.9 Other specified health status; Z79.4 Long term (current) use of insulin; Z79.84 Long term (current) use of oral hypoglycemic drugs | CPT/HCPCS: 99213 ==